=== PATIENT | male | born 1970 | race Caucasian/White ===

== ENCOUNTER 2019-04-19 | Emergency (ER) | payer BC ==
[2019-04-19] MEDS ORDERED: BREO ELLIPTA 101 INH PO (10:23)
[2019-04-19] MEDS ORDERED: ULTRAM50 M1 PO (10:28)
[2019-04-19] MEDS ORDERED: FLEXERIL PO (10:28)
[2019-04-19] MEDS ORDERED: NAPROXEN500 MG PO (10:53)
== END 2019-04-19 11:25 | disposition home or self-care (01) | DRG 554 ==
DX: M19.012 Primary osteoarthritis, left shoulder (principal)